=== PATIENT | female | born 1950 | race Caucasian/White ===

== ENCOUNTER → 2017-07-07 | Outpatient (CLI) | payer OTHER ==
--- NOTE | 2017-07-07 15:59 | MAMMOGRAPHY REPORT ---
BILATERAL DIGITAL SCREENING MAMMOGRAM WITH CAD: 07/07/2017 CLINICAL HISTORY: Routine screening. Patient has no complaints. TECHNIQUE: Bilateral CC, MLO and repeat right cc views were obtained. Current study was also evaluat ed with a Computer Aided Detection (CAD) system. COMPARISON: Comparison is made to exam dated: 06/18/2016 mammogram - [facility]. BREAST COMPOSITION: There are scattered areas of fibroglandular density in both breasts. FINDINGS: There is possible architectural distortion in the upper outer middle to posterior left fabián ast, for which additional spot compression tomosynthesis views and possibly ultrasound are recommende d. There are a few benign-appearing microcalcifications scattered bilaterally. No other suspicious mass, architectural distortion or cluster of microcalcifications is seen. IMPRESSION: ACR BI-RADS CATEGORY 0: INCOMPLETE EVALUATION: NEED ADDITIONAL IMAGING EVALUATION The possible architectural distortion in the upper outer quadrant of the left breast needs additional evaluation. The patient will be called to schedule an appointment. Approximately 10% of breast cancers are not detected with mammography. A negative mammographic report should not delay biopsy if a clinically suggestive mass is present. Araceli Vieira M.D. ay/:07/07/2017 12:18:21 Phlebotomy Services Technician: Lexie FINE(Oj)(Angie)(BD), [facility] letter sent: Addl Imaging 0 BI-RADS Code: ACR BI-RADS Category 0: Incomplete Evaluation: Need Additional Imaging Evaluation
== END | disposition home or self-care (01) ==
LOC: C.MAMM 10:21
PROVIDERS: ATTEND Family Medicine
DX: Z12.31 Encounter for screening mammogram for malignant neoplasm of breast (principal)

== ENCOUNTER → 2017-07-15 | Outpatient (CLI) | payer OTHER ==
--- NOTE | 2017-07-15 12:39 | MAMMOGRAPHY REPORT ---
UNILATERAL LEFT DIGITAL DIAGNOSTIC MAMMOGRAM TOMOSYNTHESIS: 07/15/2017 CLINICAL HISTORY: Callback from screening mammogram for possible left breast architecture distortion. TECHNIQUE: Breast tomosynthesis in addition to standard 2D mammography was performed. Spot compress ion left CC and MLO 2-D and tomosynthesis images were obtained. COMPARISON: Comparison is made to exams dated: 07/07/2017 mammogram and 06/18/2016 mammogram - [facility]. BREAST COMPOSITION: There are scattered areas of fibroglandular density in the left breast. FINDINGS: The questionable area of architectural distortion seen within the left upper outer quadrant does not persist on the additional views. The parenchymal pattern in this region appears similar to prior mammograms including the 2010 exam, without a suspicious mass or architectural distortion note d on the additional images. Findings are benign and compatible with normal fibroglandular tissue. IMPRESSION: ACR BI-RADS CATEGORY 2: BENIGN No architectural distortion noted within the left upper outer quadrant on the additional views; findi ngs are benign and compatible with normal fibroglandular tissue. There is no mammographic evidence o f malignancy. A 1 year screening mammogram is recommended. The patient has been verbally notified of the results. Approximately 10% of breast cancers are not detected with mammography. A negative mammographic report should not delay biopsy if a clinically suggestive mass is present. Bridget Clayton M.D. ah/:07/15/2017 08:15:35 Social Science Teacher: Rukhsana GIORDANO)(Angie), [facility] letter sent: Normal 1/2 BI-RADS Code: ACR BI-RADS Category 2: Benign
== END | disposition home or self-care (01) ==
LOC: C.MAMM 07:55
PROVIDERS: ATTEND Family Medicine
DX: R92.8 Other abnormal and inconclusive findings on diagnostic imaging of breast (principal); N64.89 Other specified disorders of breast

== ENCOUNTER → 2017-12-21 | Outpatient (CLI) | payer OTHER ==
--- NOTE | 2017-12-22 14:01 | MAMMOGRAPHY REPORT ---
UNILATERAL LEFT DIGITAL DIAGNOSTIC MAMMOGRAM TOMOSYNTHESIS WITH CAD AND TARGETED LEFT ULTRASOUND: 12/21 CLINICAL HISTORY: 67-year-old woman presents after she felt a small lump in the 6:00 left breast. Sh e also reports intermittent shooting pain in the left medial breast at approximately 9:00. No skin e rythema or nipple discharge. No strong family history of breast cancer. TECHNIQUE: Left breast tomosynthesis in addition to standard 2D mammography was performed. Current st udy was also evaluated with a Computer Aided Detection (CAD) system. COMPARISON: Comparison is made to exams dated: 07/15/2017 mammogram, 07/07/2017 mammogram, 06/18/2016 ma mmogram - [facility], 04/18/2014 mammogram, 05/09/2015 mammogram, and 04/05/2013 mammog shanda. BREAST COMPOSITION: There are scattered areas of fibroglandular density in the left breast. FINDINGS: A triangular palpable marker overlies the 6:00 left breast, denoting the palpable lump poin janessa out by the patient. The bregma pattern is similar to prior mammograms. There are scattered ananda gn-appearing microcalcifications and minimal vascular calcification. No new suspicious mass, archite ctural distortion or cluster of microcalcifications is seen, with particular attention to the area of palpable concern in the 6:00 left breast. Targeted ultrasound was performed in the 6:00 left breast in the area of lump pointed out by the joe ent, and also in the 9:00 left breast in the area of shooting pain pointed out by the patient. In th e 6:00 axis, 8 cm from the nipple the patient points out a soft oval mass slightly larger than a BB. On targeted ultrasound over this area sonographically normal tissue is seen without a suspicious vlad id or cystic mass. In the 9:00 left breast approximately 3 cm from the nipple in the area of pain, s onographically normal tissue is also identified. IMPRESSION: ACR BI-RADS CATEGORY 2: BENIGN, TARGETED ULTRASOUND ACR BI-RADS CATEGORY 2: BENIGN Stable mammographic appearance of the left breast. There is no mammographic or targeted sonographic evidence of malignancy or suspicious abnormality to explain the lump in the 6:00 axis or pain in the 9:00 axis. Therefore, clinical follow-up is recommended as biopsy of a clinically suspicious mass sh ould not be precluded by negative imaging. Otherwise recommend return to annual screening schedule w ashishh is due in June 2018. Approximately 10% of breast cancers are not detected with mammography. A negative mammographic report should not delay biopsy if a clinically suggestive mass is present. Araceli Vieira M.D. ay/:12/21/2017 15:02:41 Occupational Health Nurse Supervisor: All FINE(Oj)(M), [facility] letter sent: Normal 1/2 BI-RADS Code: ACR BI-RADS Category 2: Benign Ultrasound BI-RADS: ACR BI-RADS Category 2: Benign
== END | disposition home or self-care (01) ==
LOC: C.MAMM 12:48
PROVIDERS: ATTEND Family Medicine
DX: N63.24 Unspecified lump in the left breast, lower inner quadrant (principal)